=== PATIENT | female | born 1985 | race Caucasian/White ===

== ENCOUNTER 2023-05-22 06:45 | Inpatient (IN) | payer BC ==
[2023-05-22 08:03] VITALS: BMI 23.0
[2023-05-22] MEDS ORDERED: BUTORPHANOL TARTRATE 1 MG/ML VIAL IVPB ONE (08:09)
[2023-05-22] MEDS ORDERED: PROMETHAZINE HCL 25 MG/1 ML VIAL IVPB ONE (08:09)
[2023-05-22] MEDS ORDERED: OXYTOCIN 30 UNITS in 0.9% NS 30 UNIT/500 ML INFUS.BAG IVPB SCH (08:15)
[2023-05-22] MEDS ORDERED: ELECTROLYTE-148 SOLN 1,000 ML IV SCH (08:15)
[2023-05-22] MEDS ORDERED: OXYTOCIN 30 UNITS in 0.9% NS 30 UNIT/500 ML INFUS.BAG IVPB ONE (08:33)
[2023-05-22 08:52] LABS: BASO % 0.9 % (0-2.0); EOS % 2.2 % (0-4.5); HEMATOCRIT 31.5 % (32.4-45.2); HEMOGLOBIN 10.5 GM/dL (10.7-15.3); LYMPH % 33.5 % (8-40); MCH 28.2 pg (25.7-33.7); MCHC 33.3 g/dl (32.0-36.0); MEAN CELL VOLUME 84.5 fl (80-96); MEAN PLT VOLUME 10.2 fl (7.5-11.1); MONO % 5.3 % (3.8-10.2); NEUT % 58.1 % (42.8-82.8); PLATELET COUNT 165 10^3/uL (134-434); RBC 3.73 M/mm3 (3.60-5.2); RDW 14.6 % (11.6-15.6); WHITE BLOOD COUNT 5.7 K/mm3 (4.0-10.0)
[2023-05-22 08:59] LABS: INR 1.04 (0.83-1.09); PROTHROMBIN TIME (PATIENT) 12.1 SEC (9.7-13.0)
[2023-05-22 09:01] LABS: ACTIVATED PTT 24.7 SECONDS (25.2-36.5)
[2023-05-22 09:07] LABS: POTASSIUM 3.2 mmol/L (3.5-5.1)
[2023-05-22 09:10] LABS: BLOOD UREA NITROGEN 8.6 mg/dL (7-18); CALCIUM 8.9 mg/dL (8.5-10.1)
[2023-05-22 09:13] LABS: CREATININE 0.6 mg/dL (0.55-1.3)
[2023-05-22 10:37] LABS: HIV INTERPRETATION NEGATIVE (NEGATIVE)
[2023-05-22] MEDS ORDERED: FENTANYL/BUPIVACAINE/NS/PF - PCEA - 50 ML DISP.SYRIN EP ONE ×2 (13:48→19:24)
[2023-05-22] MEDS ORDERED: NALOXONE HCL 0.4 MG/ML VIAL IVPUSH PRN (14:10)
[2023-05-22] MEDS ORDERED: LIDO 2%/EPI 1:200000 PRESRVFRE (20 ML SDVIAL) ONE (14:12)
[2023-05-22] MEDS ORDERED: BUPIVACAINE HCL/PF 0.25% (2.5MG/ML) 10 ML VIAL ONE (14:12)
[2023-05-22] MEDS: FENTANYL/BUPIVACAINE/NS/PF - PCEA - 50 ML DISP.SYRIN EP SCH ×2 (14:30→19:25)
[2023-05-22] MEDS ORDERED: ALPRAZolam 1 MG TABLET PO PRN ×2 (18:27→18:48)
[2023-05-22] MEDS ORDERED: ALPRAZolam 0.25 MG TABLET PO PRN ×2 (18:42→18:55)
[2023-05-22] MEDS ORDERED: OXYTOCIN 20 UNITS in 0.9% NS 20 UNIT/1,000 ML INFUS.BAG IV ONE (20:33)
[2023-05-22] MEDS ORDERED: LIDOCAINE HCL 1% PRESERVATIVE FREE - 30ML VIAL ONE (20:33)
[2023-05-22] MEDS ORDERED: METHYLERGONOVINE MALEATE 0.2 MG/1 ML AMP IM PRN (23:07)
[2023-05-22] MEDS ORDERED: WITCH HAZEL 50% (TUCKS) 40 PAD/JAR PAD TP PRN (23:07)
[2023-05-22] MEDS ORDERED: oxyCODONE HCL 5 MG TABLET PO PRN (23:07)
[2023-05-22] MEDS ORDERED: BENZOCAINE 20% 57 GM BOTTLE TP PRN (23:07)
[2023-05-22] MEDS ORDERED: BISACODYL 10 MG SUPP.RECT RC PRN (23:07)
[2023-05-22] MEDS ORDERED: ACETAMINOPHEN 325 MG TABLET (FP) PO PRN (23:07)
[2023-05-22] MEDS ORDERED: BENZOCAINE 28 GM HEMORRHOIDAL OINTMENT TP PRN (23:07)
[2023-05-22] MEDS ORDERED: OXYTOCIN 20 UNITS in 0.9% NS 20 UNIT/1,000 ML INFUS.BAG IV SCH (23:15)
[2023-05-22] MEDS ORDERED: diphenhydrAMINE HCL 25 MG CAPSULE (FP) PO ONE ×2 (23:35→23:39)
[2023-05-22] MEDS: IBUPROFEN 600 MG TABLET (FP) PO PRN (23:40)
[2023-05-22] MEDS ORDERED: IBUPROFEN 600 MG TABLET (FP) PO ONE (23:40)
[2023-05-23] MEDS ORDERED: diphenhydrAMINE HCL 25 MG CAPSULE (FP) PO ONE (00:30)
[2023-05-23] MEDS: IBUPROFEN 600 MG TABLET (FP) PO PRN ×4 (04:46→19:47)
[2023-05-23 07:00] LABS: BASO % 0.5 % (0-2.0); EOS % 1.4 % (0-4.5); HEMATOCRIT 32.8 % (32.4-45.2); HEMOGLOBIN 10.7 GM/dL (10.7-15.3); LYMPH % 17.4 % (8-40); MCH 27.9 pg (25.7-33.7); MCHC 32.7 g/dl (32.0-36.0); MEAN CELL VOLUME 85.3 fl (80-96); MEAN PLT VOLUME 10.2 fl (7.5-11.1); MONO % 3.8 % (3.8-10.2); NEUT % 76.9 % (42.8-82.8); PLATELET COUNT 161 10^3/uL (134-434); RBC 3.85 M/mm3 (3.60-5.2); RDW 14.6 % (11.6-15.6); WHITE BLOOD COUNT 9.4 K/mm3 (4.0-10.0)
[2023-05-23] MEDS: PRENATAL VITAMINS W/ FOLIC ACID TABLET (FP) PO SCH (09:54)
[2023-05-23] MEDS: FERROUS SO4 325 MG TABLET (FP) PO SCH ×2 (09:54→21:32)
[2023-05-23] MEDS ORDERED: ALPRAZolam 1 MG TABLET PO PRN (14:10)
[2023-05-23] MEDS ORDERED: ALPRAZolam 0.25 MG TABLET PO PRN (19:45)
[2023-05-23] MEDS ORDERED: SENNOSIDES/DOCUSATE COMBO (SENNA PLUS) TABLET (UD) PO PRN (22:00)
[2023-05-24] MEDS: IBUPROFEN 600 MG TABLET (FP) PO PRN ×2 (00:27→07:11)
[2023-05-24 09:25] VITALS: BP 102/61; PULSE 56; RESP 18; TEMP 98.1
[2023-05-24] MEDS: PRENATAL VITAMINS W/ FOLIC ACID TABLET (FP) PO SCH (09:51)
[2023-05-24] MEDS: FERROUS SO4 325 MG TABLET (FP) PO SCH (09:51)
== END 2023-05-24 13:20 | disposition home or self-care (01) | DRG 807 ==
LOC: EDBD 06:45 → JLDR 06:45 → J3W 05-23 01:07
PROVIDERS: ADMIT Obstetrics & Gynecology; ATTEND Obstetrics & Gynecology
PROC: 0HQ9XZZ Repair Perineum Skin, External Approach (ICD-10-PCS; principal; 2023-05-22)
PROC: 10E0XZZ Delivery of Products of Conception, External Approach (ICD-10-PCS; 2023-05-22)
DX: O70.0 First degree perineal laceration during delivery (principal); Z37.0 Single live birth; Z3A.39 39 weeks gestation of pregnancy
CPT/HCPCS: 36415; 80048; 85025; 85610; 85730; 86780; 86850; 86900; 86901; 87389

== ENCOUNTER 2025-05-18 14:29 | Observation (INO) | payer BC ==
[2025-05-18] MEDS ORDERED: ACETAMINOPHEN INJECTION 100 ML ONE (14:54)
[2025-05-18] MEDS ORDERED: hydrOXYzine PAMOATE 25 MG CAPSULE (FP) PO ONE (14:54)
[2025-05-18] MEDS ORDERED: ONDANSETRON 4 MG/2 ML VIAL ONE (14:58)
[2025-05-18] MEDS: SODIUM CHLORIDE 0.9% 500 ML INFUS.BAG IV ONE ×2 (15:10→21:30)
[2025-05-18] MEDS: ONDANSETRON 4 MG/2 ML VIAL IVPUSH ONE (15:10)
[2025-05-18] MEDS: ACETAMINOPHEN 1000 MG/100 ML BAG IVPB ONE (15:15)
[2025-05-18] MEDS ORDERED: ASPIRIN 81 MG CHEWABLE TABLETS ONE (15:25)
[2025-05-18] MEDS: ASPIRIN 81 MG CHEWABLE TABLETS PO ONE (15:25)
[2025-05-18] MEDS ORDERED: MAGNESIUM SULFATE IN WATER 2 GM/50 ML IVPB IVPB ONE (15:25)
[2025-05-18] MEDS: MAGNESIUM SULFATE IN WATER 2 GM/50 ML IVPB IVPB ONE (15:30)
[2025-05-18 15:32] LABS: ABSOLUTE IMMATURE GRANULOCYTES 0.01 x10^3/uL (0.0-0.031); BASOPHILS # 0.05 x10^3/uL (0.01-0.08); EOSINOPHIL % 0.8 % (0.7-5.8); EOSINOPHILS # 0.06 x10^3/uL (0.04-0.36); MCHC 35.2 g/dl (32.2-35.5); MEAN CELL VOLUME 95.8 fl (79.4-94.8); MEAN PLT VOLUME 10.2 fl (9.4-12.3); MONOCYTE # 0.54 x10^3/uL (0.24-0.86); MONOCYTE % 7.0 % (4.7-12.5); RDW 11.4 % (12.2-17.1)
[2025-05-18 15:44] LABS: ALK PHOS 76.0 U/L (45-117); CO2 34.0 mmol/L (21-32); CREATININE 1.0 mg/dl (0.6-1.3); GLUCOSE,RANDOM 69.0 mg/dl (74-106); SGOT/AST 27.0 U/L (15-37); SGPT/ALT 13.0 U/L (7-52); TOT PROT 7.9 g/dl (6.4-8.2)
[2025-05-18] MEDS ORDERED: KCL 10 MEQ IVPB 20 MEQ/200 ML INFUS.BAG IVPB ONE (16:05)
[2025-05-18] MEDS ORDERED: POTASSIUM CHLORIDE ORAL LIQUID 20 MEQ/15 ML ONE ×2 (16:05→21:42)
[2025-05-18] MEDS: KCL 10 MEQ IVPB 10 MEQ/100 ML INFUS.BAG IVPB SCH (16:10)
[2025-05-18] MEDS: POTASSIUM CHLORIDE ORAL LIQUID 20 MEQ/15 ML PO ONE ×2 (16:10→21:45)
[2025-05-18 21:34] LABS: CO2 32.0 mmol/L (21-32); CREATININE 0.9 mg/dl (0.6-1.3); GLUCOSE,RANDOM 102.0 mg/dl (74-106)
[2025-05-19 02:26] VITALS: RESP 20; BMI 18.8
[2025-05-19] MEDS ORDERED: ACETAMINOPHEN 500 MG TABLET (FP) PO PRN (05:16)
[2025-05-19] MEDS ORDERED: ONDANSETRON 4 MG/2 ML VIAL IVPUSH PRN (05:16)
[2025-05-19] MEDS ORDERED: PATIENT'S OWN MEDICATION (NON-FORMULARY) (Dextroamphetamine/Amphetamine [Adderall 10 Mg Ta PO PRN (05:19)
[2025-05-19] MEDS: SODIUM CHLORIDE 1,000 ML with POTASSIUM CHLORIDE 40 MEQ IV SCH (05:36)
[2025-05-19] MEDS: SIMETHICONE 80 MG TAB.CHEW (FP) PO PRN (05:41)
[2025-05-19] MEDS: PATIENT'S OWN MEDICATION (NON-FORMULARY) (Dextroamphetamine/Amphetamine [Adderall Xr 30 Mg PO SCH (06:58)
[2025-05-19 07:00] LABS: ABSOLUTE IMMATURE GRANULOCYTES 0.02 x10^3/uL (0.0-0.031); BASOPHILS # 0.06 x10^3/uL (0.01-0.08); EOSINOPHIL % 2.2 % (0.7-5.8); EOSINOPHILS # 0.16 x10^3/uL (0.04-0.36); MCHC 33.6 g/dl (32.2-35.5); MEAN CELL VOLUME 99.5 fl (79.4-94.8); MEAN PLT VOLUME 10.6 fl (9.4-12.3); MONOCYTE # 0.46 x10^3/uL (0.24-0.86); MONOCYTE % 6.3 % (4.7-12.5); RDW 11.9 % (12.2-17.1)
[2025-05-19 07:34] LABS: GLUCOSE,RANDOM 79.0 mg/dL (74-106); TOT PROT 6.3 g/dl (6.4-8.2)
[2025-05-19 07:35] LABS: CO2 26.0 mmol/L (21-32)
[2025-05-19 07:37] LABS: ALK PHOS 63.0 U/L (40-150)
[2025-05-19 07:39] LABS: SGOT/AST 26.0 U/L (5-34); SGPT/ALT 12.0 U/L (0-55)
[2025-05-19 07:40] LABS: CREATININE 0.78 mg/dL (0.55-1.3)
[2025-05-19] MEDS: DEXTROAMPHETAMINE/AMPHETAMINE 10 MG CAP.ER.24H PO SCH (10:55)
[2025-05-19] MEDS: ENOXAPARIN NA (PORCINE) 40 MG/0.4 ML DISP.SYRIN SQ SCH (11:00)
[2025-05-19] MEDS: POTASSIUM CHLORIDE TABS 20 MEQ TABLET.ER (FP) PO SCH (11:00)
[2025-05-19 11:21] VITALS: BP 95/58; PULSE 63; TEMP 98.5
== END 2025-05-20 09:38 | disposition home or self-care (01) ==
LOC: FER 14:29 → J4W 05-19 01:29 → INTOOBSV 05-19 01:29
PROVIDERS: ATTEND Registered Nurse
PROC: 3E033NZ Introduction of Analgesics, Hypnotics, Sedatives into Peripheral Vein, Percutaneous Approach (ICD-10-PCS; principal; 2025-05-19)
PROC: 3E033GC Introduction of Other Therapeutic Substance into Peripheral Vein, Percutaneous Approach (ICD-10-PCS; 2025-05-19)
DX: I45.81 Long QT syndrome (principal); E87.6 Hypokalemia; F90.9 Attention-deficit hyperactivity disorder, unspecified type; F41.0 Panic disorder [episodic paroxysmal anxiety]; Z97.5 Presence of (intrauterine) contraceptive device; R00.0 Tachycardia, unspecified; F41.9 Anxiety disorder, unspecified; I95.9 Hypotension, unspecified; E87.1 Hypo-osmolality and hyponatremia
CPT/HCPCS: 36415; 71045-TC-FY; 80048; 80053; 83036; 83605; 83735; 83930; 84100; 84443; 84484; 85025; 93005; 93010; 99285-25; G0378